=== PATIENT | female | born 1950 | race Caucasian/White ===

== ENCOUNTER → 2020-05-21 12:57 | Outpatient (BNVA) | payer MEDICARE, SELFPAY | PROVIDERS: PCP Internal Medicine; Referring Provider Internal Medicine; Visit Provider Hospitalist | DX: J44.9 Chronic obstructive pulmonary disease, unspecified (principal); J96.10 Chronic respiratory failure, unspecified whether with hypoxia or hypercapnia; F17.210 Nicotine dependence, cigarettes, uncomplicated; Z99.81 Dependence on supplemental oxygen | CPT/HCPCS: 99214 ==

== ENCOUNTER → 2020-08-18 13:39 | Outpatient (BNVA) | payer MEDICARE, SELFPAY | PROVIDERS: PCP Internal Medicine; Visit Provider Hospitalist | DX: J44.9 Chronic obstructive pulmonary disease, unspecified (principal); J96.10 Chronic respiratory failure, unspecified whether with hypoxia or hypercapnia; J18.9 Pneumonia, unspecified organism; M54.9 Dorsalgia, unspecified | CPT/HCPCS: Q3014 ==

== ENCOUNTER 2020-08-19 17:54 | Outpatient (REF) | payer MEDICARE, SELFPAY ==
--- NOTE | 2020-08-19 18:08 | XR_ITS ---
EXAMINATION: XR CHEST CLINICAL INFORMATION: Pneumonia COMPARISON: None TECHNIQUE: 2 views of the chest were obtained. FINDINGS: Diffuse interstitial prominence. No focal consolidation or mass. Lungs are hyperexpanded consistent with emphysema. Calcified aortic arch. Normal heart size. Diffuse osteopenia. There is loss of vertebral body height and endplate sclerosis and irregularity centered around a mid thoracic disc space. XR/XR chest 2V IMPRESSION: Lungs are hyperexpanded consistent with emphysema. There is loss of vertebral body height and endplate sclerosis and irregularity centered around a mid thoracic disc space. This is most likely degenerative in etiology but osteomyelitis could give this appearance in the appropriate clinical setting. If the patient has back pain, consider MRI for further evaluation. There is diffuse interstitial prominence. Favor bronchitis over pulmonary edema or interstitial pneumonitis.
[2020-08-19 18:09] LABS: MANUAL DIFF FLAG NO
[2020-08-19 18:21] LABS: D Dimer 577 NG/ML
[2020-08-19 18:27] LABS: Basophils Percent Auto 0.2 % (0-2); Hematocrit 41.5 % (37-47); Hemoglobin 13.7 g/dl (12.0-16.0); Imm Gran Abs Auto 0.02 X10*3/uL (0.00-0.03); Imm Gran Pct Auto 0.2 % (0.0-0.4); Lymphocytes Absolute Auto 0.7 X10*3/uL (1.2-4.9); Lymphocytes Percent Auto 9.2 % (20-40); Mean Corpuscular Hemoglobin 30.6 pg (27.0-33.0); Mean Corpuscular Volume 92.8 fL (80-98); Mean Platelet Volume 9.8 fL (9.4-12.3); Monocytes Absolute Auto 0.3 X10*3/uL (0.1-1.2); Monocytes Percent Auto 4.2 % (2-11); Neutrophils Absolute Auto 6.9 X10*3/uL (2.0-8.3); Neutrophils Percent Auto 86.2 % (45-73); Platelet Count 289 X10*3/uL (160-400); Red Blood Count 4.47 X10*6/uL (4.20-5.50); Red Cell Distribution Width 11.5 % (11.0-16.0)
[2020-08-19 18:30] LABS: Anion Gap 13 (12-20); Blood Urea Nitrogen 15 mg/dL (9-16); Calcium 9.1 mg/dL (8.4-10.2); Carbon Dioxide 29 mmol/L (22-29); Chloride 100 mmol/L (96-108); Estimated Glomerular Filt Rate > 60; Glucose Random 129 mg/dL (60-115); Potassium 4.4 mmol/l (3.3-5.1); Sodium 138 mmol/L (135-145)
[2020-08-19 19:05] LABS: Erythrocyte Sedimentation Rate 11 MM/HR (0-20)
== END 2020-08-19 17:55 | disposition home or self-care (01) ==
LOC: HO.LAB 17:54
PROVIDERS: Visit Provider Hospitalist
DX: J18.9 Pneumonia, unspecified organism (principal)
CPT/HCPCS: 36415; 71046; 80048; 85025; 85379; 85652

== ENCOUNTER 2020-08-20 15:35 | Outpatient (REF) | payer MEDICARE, SELFPAY ==
--- NOTE | 2020-08-20 15:41 | CT_ITS ---
EXAMINATION: CT ANGIOGRAM OF THE CHEST WITH AND WITHOUT CONTRAST (CT PULMONARY ANGIOGRAM FOR PE) CLINICAL INFORMATION: Reason for Exam M54.9 - Dorsalgia, unspecified COMPARISON: Chest radiographs 08/19/2020 TECHNIQUE: Prior to contrast administration, noncontrast localization images were obtained. Subsequently, multidetector volumetric imaging was performed from the thoracic inlet to below the diaphragms following the administration of 65 mL Omnipaque 350 intravenous contrast. Sagittal, coronal, and MIP oblique sagittal reformatted images were obtained on the CT workstation, uploaded to PACS, and reviewed. This CT examination was performed using dose optimization techniques as appropriate, variously including the following: *Automated exposure control *Adjustment of mA and/or kV according to patient size (this includes techniques or standardized protocols for targeted exams where dose is matched to indication/reason for exam; i.e. extremities or head) *Use of iterative reconstruction technique Total exam dose-length product 49 mGy-cm FINDINGS: QUALITY OF STUDY/CONTRAST BOLUS: Satisfactory. PULMONARY ARTERIES: No central or segmental pulmonary emboli. THORACIC AORTA: No aneurysm or dissection. LUNG: There is hyperinflation/COPD. No airspace consolidation or groundglass opacity. No mass. The central airways are clear. No endobronchial lesion or bronchiectasis. No pneumothorax PLEURA: No pleural effusion or pneumothorax. MEDIASTINUM: Normal heart size. No pericardial effusion. No hilar or mediastinal lymphadenopathy. No evidence of septal bowing or right heart strain. CHEST WALL/AXILLA: No axillary or internal mammary lymphadenopathy. OSSEOUS STRUCTURES: There is dextrocurvature midthoracic spine with loss of height inferior endplate T7 and superior endplate T8 with vacuum disc, endplate sclerosis, and spurring. No paraspinal soft tissue swelling. Findings suggest chronic vertebral compression. No acute bony abnormality demonstrated. UPPER ABDOMEN: There are scattered low-attenuation lesions in the liver, largest right lobe 2.8 cm and 5HU attenuation consistent with a cyst. Scattered other low attenuation lesions are beyond water attenuation, largest anterior left lobe measures 1.7 x 3.4 cm. There is a cyst upper pole right kidney measuring 2.4 cm and 9 HU attenuation. No reflux of contrast into the hepatic veins to suggest elevated right heart pressures. CT/CT angio chest PE protocol IMPRESSION: 1. No pulmonary embolism. No thoracic aortic dissection. 2. Hyperinflation/COPD. Lungs clear. 3. Midthoracic vertebral compressions T7 and T8, likely chronic. No paraspinal soft tissue swelling. 4. Multiple low-attenuation lesions liver, some consistent with cysts. This may be correlated with liver function tests and if clinically indicated ultrasound. Right upper pole renal cyst. VTE: negative
[2020-08-20] MEDS: iohexoL 350 MG/ML 100 ML INFUS..BTL 65 ML IV (16:19)
== END 2020-08-20 15:36 | disposition home or self-care (01) ==
LOC: HO.CT 15:35
PROVIDERS: Visit Provider Hospitalist
DX: R79.89 Other specified abnormal findings of blood chemistry (principal); R07.9 Chest pain, unspecified; M54.9 Dorsalgia, unspecified
CPT/HCPCS: 71275; Q9967

== ENCOUNTER 2020-09-02 | Outpatient (REF) | payer MEDICARE, SELFPAY | END 2020-09-02 00:01 | disposition home or self-care (01) | LOC: HO.VC | PROVIDERS: Visit Provider Internal Medicine | DX: Z23 Encounter for immunization (principal) | CPT/HCPCS: 0011A ==

== ENCOUNTER 2020-09-29 | Outpatient (REF) | payer MEDICARE, SELFPAY | END 2020-09-29 00:01 | disposition home or self-care (01) | LOC: HO.VC | PROVIDERS: Visit Provider Internal Medicine | DX: Z23 Encounter for immunization (principal) | CPT/HCPCS: 0012A ==

== ENCOUNTER → 2020-09-29 09:45 | Outpatient (BNVA) | payer MEDICARE, SELFPAY | PROVIDERS: PCP Internal Medicine; Visit Provider Hospitalist | DX: J43.2 Centrilobular emphysema (principal); J96.11 Chronic respiratory failure with hypoxia | CPT/HCPCS: 99212 ==

== ENCOUNTER 2020-11-26 13:09 | Emergency (ER) | payer MEDICARE, SELFPAY ==
--- NOTE | ~2020-11-26 | CT_ITS ---
EXAMINATION: CTA CHEST CT ABDOMEN AND PELVIS WITH CONTRAST CLINICAL INFORMATION: Shortness of breath. Abdominal fullness . COMPARISON: CT angiography chest 08/20/2020 TECHNIQUE: A noncontrast localizer was performed, followed by the administration of 85 mL Omnipaque [address] of the chest was then performed. Coronal and sagittal reformatted and 3-D technique MIP images of the chest were completed at the CT scanner and reviewed on the PACS workstation. No adverse effects were reported. Images were then performed through the abdomen and pelvis. Coronal and sagittal reformatted images performed at CT scanner by technologist. [This CT examination was performed using dose optimization techniques as appropriate, variously including the following: *Automated exposure control *Adjustment of mA and/or kV according to patient size (this includes techniques or standardized protocols for targeted exams where dose is matched to indication/reason for exam; i.e. extremities or head) *Use of iterative reconstruction technique] DLP: 279 mGy-cm. FINDINGS: CTA CHEST Vascular: The main pulmonary artery, secondary and tertiary branches of the pulmonary artery are normally opacified with no evidence of pulmonary embolism. No aneurysm or dissection of aorta. There are vascular wall calcifications of the aorta. There is no pericardial effusion. Heart size is normal. Moderate volume of coronary artery calcifications. Mediastinum: No mediastinal mass. No significant lymphadenopathy. Lungs: Marked emphysematous change of lungs. No acute airways disease. No interstitial lung disease. No significant bronchiectasis. Fluid: There is no pericardial effusion. There is no pleural effusion. Axilla: No significant lymphadenopathy. CT SCAN ABDOMEN/PELVIS: Liver, Gallbladder and Biliary Tree: Numerous various-sized hypodense lesions throughout the liver with sharply marginated borders. Largest of these measures about 3 cm. These have density measurement of 10 Hounsfield units consistent with hepatic cysts. No suspicious liver lesions or intrahepatic bile duct dilatation. Calcified gallstones layer dependently in the gallbladder. There is no edema around the gallbladder. There is no bile duct dilatation. The extra hepatic CBD measures 5 mm. Pancreas: Unremarkable. Spleen: Unremarkable. Adrenal Glands: Unremarkable. Kidneys and Ureters: The kidneys are normal in size, shape, and attenuation. No hydronephrosis, hydroureter, or calculi seen. No perinephric stranding. There are scattered hypodensities in the cortex of both kidneys. The largest of these is at the upper pole of the right kidney measuring 2.5 cm. This has a density measurement of 10 Hounsfield units consistent with a renal cyst. Many of the other are too small to characterize. These are likely additional renal cysts. No follow-up imaging is recommended for simple renal cyst. There is no renal or ureteral calculus. There is no hydronephrosis. Bladder: Unremarkable. Gastrointestinal Tract: There are numerous diverticula of the left colon and sigmoid colon. Scattered diverticula of the right colon. There is no diverticulitis. There is no bowel wall thickening /edema. There is no bowel obstruction. There is a moderate to large volume of stool in the colon. The appendix is nonvisualized. The small bowel loops are unremarkable. The stomach is normal. There is no hiatal hernia. Abdominal Wall: No significant hernia is appreciated. Lymph Nodes: Normal. Vascular: Aneurysm of aorta measuring 2.8 cm AP. Intraluminal thrombus is present in the aneurysm. There are vascular calcifications of aorta and iliac arteries. For an aneurysm of 2.8 cm follow-up imaging every 5 years is recommended. There are vascular calcifications of the major branch vessels of aorta most significantly at the splenic artery. Pelvic Viscera: Unremarkable. Osseous Structures: Near complete loss of height of the L4 vertebrae. This is a chronic deformity with sclerosis of the bone and marginal bone spurs. There is a spur at the posterior superior endplate that encroaches into the central spinal canal. There is significant central canal stenosis at L3-L4 disc. CT/CT angio chest PE protocol IMPRESSION: 1.CT CHEST: No evidence of pulmonary embolism. No acute changes of the chest. Marked emphysematous change of lungs. 2. CT abdomen and pelvis: No acute abnormality of the abdomen or pelvis. Multiple hepatic cysts. Multiple renal cysts. No follow-up imaging recommended for simple renal cysts. A 2.8 cm abdominal aortic aneurysm. Follow-up imaging every 5 years is recommended. Cholelithiasis.
[2020-11-26 13:22] VITALS: BP 110/73; BP 145/87; PULSE 75; PULSE 89; RESP 24; TEMP 36.9; O2SAT 94; O2SAT 99; BMI 13.6
--- NOTE | 2020-11-26 13:50 | PC.NURSE ---
Pt alert, oriented. skin slightly pale and cool. LS wheezing throughout. SOB and difficulty breathing noted with exertion. Pt denies pain. On arrival EMT reports pt was on 4L O2 NC. EMT reports Pt was found on 5L at home. Pt titrated to 2L, currently satting @ 96%. Pt currently in bed, daughter at bedside at this time.
--- NOTE | 2020-11-26 13:56 | ED_ITS ---
HPI - General Adult General Chief complaint: General Medical Stated complaint: failure to thrive Time Seen by Provider: 11/26/20 13:33 Source: patient Mode of arrival: ambulatory Limitations: no limitations History of Present Illness HPI narrative: Patient brought to the ED for fullness sensation in epigastric area which discouraged her to eat and patient has been losing weight. Patient also states when she has epigastric fullness she has the shortness of breath. Patient states having all these symptoms he has been going on for about 2-3 months. Patient herself bumped up her oxygen to 5 L when she had this sensation which her electronic tech was unaware of. Patient denies any chest pain, coughing, swelling of lower extremity, calf pain, fever, or chills. Patient has emphysema. Patient does admit to chronic shortness of breath. Related Data Home Medications Medication Instructions Recorded Confirmed aspirin 81 mg tablet,delayed 81 mg PO DAILY 05/21/20 11/26/20 release atorvastatin 20 mg tablet 20 mg PO BEDTIME 05/21/20 11/26/20 gabapentin 100 mg capsule 100 mg PO DAILY 05/21/20 11/26/20 lorazepam 0.5 mg tablet 0.5 mg PO DAILY PRN 05/21/20 11/26/20 albuterol sulfate [ProAir HFA] 1 puff PO Q4H PRN 11/26/20 11/26/20 amlodipine 1 tab PO DAILY 11/26/20 11/26/20 budesonide-formoterol [Symbicort] 2 puff PO BID 11/26/20 11/26/20 lorazepam 1 mg PO BEDTIME PRN 11/26/20 11/26/20 losartan 1 tab PO BEDTIME 11/26/20 11/26/20 omeprazole 1 cap PO DAILY 11/26/20 11/26/20 sertraline 1 tab PO DAILY 11/26/20 11/26/20 tiotropium bromide [Spiriva 2 puff PO DAILY 11/26/20 11/26/20 Respimat] Previous Rx's Medication Instructions Recorded alum-mag hydroxide-simeth [Maalox 10 ml PO Q6H PRN #3000 ml 11/26/20 Advanced] famotidine [Pepcid] 20 mg PO BID 20 Days #40 tab 11/26/20 prednisone 40 mg PO DAILY #10 tab 11/26/20 Allergies Allergy/AdvReac Type Severity Reaction Status Date / Time lisinopril Allergy Severe Tongue Verified 09/29/20 10:12 sweling Penicillin AdvReac Mild tachycardia Uncoded 09/29/20 10:12 Vicodin AdvReac Mild vomitting Uncoded 09/29/20 10:12 Review of Systems Review of Systems: Yes all other systems are reviewed and are negative Constitutional: Constitutional: Reports as per HPI and Reports no additional constitutional complaints Eyes: Eyes: Reports as per HPI and Reports no additional eye complaints ENT: Reports system reviewed and no additional complaints, except as documented and Reports as per HPI Cardiovascular: Cardiovascular: Reports as per HPI, Reports no additional cardiovascular complaints and Reports dyspnea (Chronic) Respiratory: Respiratory: Reports as per HPI, Reports no additional respiratory complaints and Reports dyspnea (Chronic) Gastrointestinal: Gastrointestinal: Reports as per HPI, Reports no additional gastrointestinal complaints and Reports dyspepsia (In epigastric area) Genitourinary: Genitourinary: Reports no additional female genitourinary complaints and Reports as per HPI Musculoskeletal: Musculoskeletal: Reports no additional musculoskeletal complaints and Reports as per HPI Neurologic: Reports system reviewed and no additional complaints, except as documented and Reports as per HPI Psychiatric: Psychiatric: Reports no additional psychiatric complaints and Reports as per HPI [facility] Past Medical History Medical History (Updated 11/26/20 @ 21:55 by ZACK Gibson) Back pain Chest pain Chronic respiratory failure Compression fracture of body of thoracic vertebra COPD (chronic obstructive pulmonary disease) Pneumonia Family History Family History (Updated 05/21/20 @ 20:58 by Lizandro Silva MD) Father No problems noted. Social History Social History (Updated 05/21/20 @ 13:15 by Cindy Tristan MA) Smoking Status: Current every day smoker Tobacco Type: Cigarette Packs Per Day: 1.5 Cigarettes Per Day: 6 Years Smoked: 55 years Advance Directives: No Advance Directives Information Provided: No Physical Exam Vital Signs: Vital Signs: Last Vital Signs Temp 98.5 F 11/26/20 13:22 Pulse 86 11/26/20 22:23 Resp 16 11/26/20 22:23 BP 133/55 L 11/26/20 22:23 Pulse Ox 97 11/26/20 22:23 Oxygen Flow Rate 3 11/26/20 13:22 Body Mass Index 13.6 Const: General: cooperative, healthy appearing, comfortable and no acute distress Orientation/consciousness: patient oriented x3 HENMT: Head: Yes normal to inspection, Yes No palpable skull fracture present, Yes normocephalic, Yes atraumatic and No abrasion Eyes: General: appearance normal, both eyes and all related structures Neck: Neck: Yes normal visual inspection, Yes full ROM, Yes no lymphadenopathy, Yes no meningeal signs, Yes trachea midline, Yes supple and No tender Chest: Chest palpation & inspection: normal inspection of the chest and normal palpation of entire chest wall Resp: Effort & Inspection: normal respiratory effort, able to speak in complete sentences, no audible wheezes and no cough Auscultation: clear to auscultation bilaterally, no crackles, no rales, no rhonchi, no wheezes and breath sounds present Cardio: Jugular venous distension: no JVD Heart sounds: S1 normal heart sound present and S2 normal heart sound present GI: Inspection: Yes normal to inspection Palpation (GI): Soft to palpation, not firm, nontender, no guarding and not rigid : General: No CVA tenderness and Yes no CVA tenderness Back/Spine/Pelvis: Back: no CVA tenderness, No CVA tenderness and No back tenderness Skin: General skin exam: no rashes or lesions noted and elasticity normal Neuro: General: patient oriented x3, no meningeal signs and CN's II-XI intact bilaterally Cranial nerves: Yes CN's II-XII intact bilaterally Extrem: Other: Lower extremities negative for swelling, pitting edema, calf tenderness General: Yes normal to inspection and Yes full ROM Psych: Appearance: grossly normal, well kempt and not disheveled Course Course Course Narrative: It is differential diagnosis is dyspepsia, but due to age will do cardiac evaluation to make sure patient is not having a heart attack. Unlikely patient having COPD exacerbation due to lungs being clear but will give her albuterol/magnesium, and Solu-Medrol treat her COPD due to patient stating chronic shortness of breath and is known to be a almost end-stage emphysema patient. Labs will be ordered, EKG, liver enzymes, an COVID swab will be ordered. Patient also given GI cocktail. Reevaluation(s) Reevaluation #1: EKG negative for STEMI. First troponin is negative. COVID swab came back negative. BNP came back negative. Patient states fullness sensation epigastric area resolved after receiving GI cocktail. GT age will send patient for abdominal CT scan just to make sure there is no abdominal etiology and CT emission does know PE or superimposed pneumonia on the emphysema. Lactic acid came back negative not suspecting sepsis. Patient's oxygen L nasal cannula was reduced from 4 L to 2 L. O2 saturation 93%. patient states feeling better. Reevaluation #2: Chest CT came back negative for PE or pneumonia. CT scan does shows gallstones without any cholecystitis. Negative Bryant sign on re- evaluation. Liver enzymes normal. No surgical intervention indicated. ABG was done due to slight tachypnea and ABG came back normal. Patient would like to be discharged and sent home. Spoke with hospitalist, Dr. Kaur to intervening he was formed patient's history, physical exam, and diagnostics. He patient does not need admission and can be discharged. He states patient can be given morphine to help with anxiety. He does not recommend antibiotics. Patient refused morphine because of side effect of severe nausea/vomiting. Patient states she takes Ativan for her anxiety. She states she takes 1 mg for her anxiety. Patient and daughter requesting GI cocktail was given to her in the ED. spoke with patient's electronic tech Dr. Lizandro Silva who was agreeable with plan and discharged and patient will follow-up with him in office. Patient does not have COPD exacerbation. Medical Decision Making MDM Narrative Medical decision making narrative: Dyspepsia.Emphysema Lab Data Result diagrams: 11/26/20 15:43 11/26/20 15:43 Labs: Lab Results 11/26/20 11/26/20 11/26/20 Range/Units 15:42 15:43 15:43 WBC 7.5 (4.8-10.8) X10*3/uL RBC 4.57 (4.20-5.50) X10*6/uL Hgb 14.0 (12.0-16.0) g/dl Hct 43.1 (37-47) % MCV 94.3 (80-98) fL MCH 30.6 (27.0-33.0) pg MCHC 32.5 (31.0-35.0) g/dl RDW 11.5 (11.0-16.0) % Plt Count 248 (160-400) X10*3/uL MPV 10.3 (9.4-12.3) fL Immature Gran % (Auto) 0.1 (0.0-0.4) % Neut % (Auto) 66.0 (45-73) % Lymph % (Auto) 22.6 (20-40) % [place] % (Auto) 5.1 (2-11) % Eos % (Auto) 5.5 H (0-4) % Baso % (Auto) 0.7 (0-2) % Lymph # (Auto) 1.7 (1.2-4.9) X10*3/uL [place] # (Auto) 0.4 (0.1-1.2) X10*3/uL Eos # (Auto) 0.4 (0.0-0.4) X10*3/uL Baso # (Auto) 0.1 (0.0-0.2) X10*3/uL Abs Immat Gran (auto) 0.01 (0.00-0.03) X10*3/uL Absolute Neuts (auto) 4.9 (2.0-8.3) X10*3/uL Absolute Nucleated RBC 0.000 (0.0-0.012) X10*3/uL Nucleated RBC % (auto) 0.0 (0.0-0.2) /100WBC PT (10.8-13.0) SEC INR (0.9-1.1) APTT (24.1-38.0) SEC O2 Saturation % ABG pH at Pt Temp (7.35-7.45) ABG pH (Temp Correct) (7.35-7.45) ABG pCO2 at Pt Temp (32-45) mmHg ABG pCO2 (Temp Corrct (32-45) mmHg ABG pO2 at Pt Temp (83-108) mmHg ABG pO2 (Temp Correct (83-108) ABG HCO3 (22-26) mmol/L ABG Base Excess (Actual) mmol/L Sodium 143 (135-145) mmol/L Potassium 4.1 (3.3-5.1) mmol/L Chloride 99 (96-108) mmol/L Carbon Dioxide 32 H (22-29) mmol/L Anion Gap 16 (12-20) BUN 15 (9-16) mg/dL Creatinine 0.57 (0.5-1.4) mg/dL Estim Creat Clear Calc 41.6 Estimated GFR > 60 Random Glucose 99 (60-115) mg/dL Lactic Acid 1.4 (0.5-2.0) mmol/L Calcium 9.7 D (8.4-10.2) mg/dL Magnesium 2.0 (1.6-2.6) mg/dL Total Bilirubin 0.5 (0.0-1.0) mg/dL Direct Bilirubin 0.2 (0.0-0.5) mg/dL AST 15 (5-31) U/L ALT 12 (0-31) U/L Alkaline Phosphatase 78 (39-117) U/L Total Creatine Kinase 39 (26-140) U/L Troponin I High Sens (<3.5-17.0) ng/L B-Natriuretic Peptide (<100) pg/mL Total Protein 6.8 (6.5-8.0) g/dL Albumin 4.3 (3.5-5.0) g/dL Lipase 11 (8-78) U/L COVID-19 ([facility]) (Negative) COVID-19 Clin Com 11/26/20 11/26/20 11/26/20 Range/Units 15:43 15:43 15:44 WBC (4.8-10.8) X10*3/uL RBC (4.20-5.50) X10*6/uL Hgb (12.0-16.0) g/dl Hct (37-47) % MCV (80-98) fL MCH (27.0-33.0) pg MCHC (31.0-35.0) g/dl RDW (11.0-16.0) % Plt Count (160-400) X10*3/uL MPV (9.4-12.3) fL Immature Gran % (Auto) (0.0-0.4) % Neut % (Auto) (45-73) % Lymph % (Auto) (20-40) % [place] % (Auto) (2-11) % Eos % (Auto) (0-4) % Baso % (Auto) (0-2) % Lymph # (Auto) (1.2-4.9) X10*3/uL [place] # (Auto) (0.1-1.2) X10*3/uL Eos # (Auto) (0.0-0.4) X10*3/uL Baso # (Auto) (0.0-0.2) X10*3/uL Abs Immat Gran (auto) (0.00-0.03) X10*3/uL Absolute Neuts (auto) (2.0-8.3) X10*3/uL Absolute Nucleated RBC (0.0-0.012) X10*3/uL Nucleated RBC % (auto) (0.0-0.2) /100WBC PT 12.1 (10.8-13.0) SEC INR 1.0 (0.9-1.1) APTT 33.1 (24.1-38.0) SEC O2 Saturation % ABG pH at Pt Temp (7.35-7.45) ABG pH (Temp Correct) (7.35-7.45) ABG pCO2 at Pt Temp (32-45) mmHg ABG pCO2 (Temp Corrct (32-45) mmHg ABG pO2 at Pt Temp (83-108) mmHg ABG pO2 (Temp Correct (83-108) ABG HCO3 (22-26) mmol/L ABG Base Excess (Actual) mmol/L Sodium (135-145) mmol/L Potassium (3.3-5.1) mmol/L Chloride (96-108) mmol/L Carbon Dioxide (22-29) mmol/L Anion Gap (12-20) BUN (9-16) mg/dL Creatinine (0.5-1.4) mg/dL Estim Creat Clear Calc Estimated GFR Random Glucose (60-115) mg/dL Lactic Acid (0.5-2.0) mmol/L Calcium (8.4-10.2) mg/dL Magnesium (1.6-2.6) mg/dL Total Bilirubin (0.0-1.0) mg/dL Direct Bilirubin (0.0-0.5) mg/dL AST (5-31) U/L ALT (0-31) U/L Alkaline Phosphatase (39-117) U/L Total Creatine Kinase (26-140) U/L Troponin I High Sens < 3.5 (<3.5-17.0) ng/L B-Natriuretic Peptide 34 (<100) pg/mL Total Protein (6.5-8.0) g/dL Albumin (3.5-5.0) g/dL Lipase (8-78) U/L COVID-19 ([facility]) Negative (Negative) COVID-19 Clin Com See Note 11/26/20 11/26/20 Range/Units 20:11 20:21 WBC (4.8-10.8) X10*3/uL RBC (4.20-5.50) X10*6/uL Hgb (12.0-16.0) g/dl Hct (37-47) % MCV (80-98) fL MCH (27.0-33.0) pg MCHC (31.0-35.0) g/dl RDW (11.0-16.0) % Plt Count (160-400) X10*3/uL MPV (9.4-12.3) fL Immature Gran % (Auto) (0.0-0.4) % Neut % (Auto) (45-73) % Lymph % (Auto) (20-40) % [place] % (Auto) (2-11) % Eos % (Auto) (0-4) % Baso % (Auto) (0-2) % Lymph # (Auto) (1.2-4.9) X10*3/uL [place] # (Auto) (0.1-1.2) X10*3/uL Eos # (Auto) (0.0-0.4) X10*3/uL Baso # (Auto) (0.0-0.2) X10*3/uL Abs Immat Gran (auto) (0.00-0.03) X10*3/uL Absolute Neuts (auto) (2.0-8.3) X10*3/uL Absolute Nucleated RBC (0.0-0.012) X10*3/uL Nucleated RBC % (auto) (0.0-0.2) /100WBC PT (10.8-13.0) SEC INR (0.9-1.1) APTT (24.1-38.0) SEC O2 Saturation 95.0 % ABG pH at Pt Temp 7.42 (7.35-7.45) ABG pH (Temp Correct) 7.42 (7.35-7.45) ABG pCO2 at Pt Temp 44 (32-45) mmHg ABG pCO2 (Temp Corrct 44 (32-45) mmHg ABG pO2 at Pt Temp 76 L (83-108) mmHg ABG pO2 (Temp Correct 75 L (83-108) ABG HCO3 29 H (22-26) mmol/L ABG Base Excess (Actual) 4.6 mmol/L Sodium (135-145) mmol/L Potassium (3.3-5.1) mmol/L Chloride (96-108) mmol/L Carbon Dioxide (22-29) mmol/L Anion Gap (12-20) BUN (9-16) mg/dL Creatinine (0.5-1.4) mg/dL Estim Creat Clear Calc Estimated GFR Random Glucose (60-115) mg/dL Lactic Acid (0.5-2.0) mmol/L Calcium (8.4-10.2) mg/dL Magnesium (1.6-2.6) mg/dL Total Bilirubin (0.0-1.0) mg/dL Direct Bilirubin (0.0-0.5) mg/dL AST (5-31) U/L ALT (0-31) U/L Alkaline Phosphatase (39-117) U/L Total Creatine Kinase (26-140) U/L Troponin I High Sens < 3.5 (<3.5-17.0) ng/L B-Natriuretic Peptide (<100) pg/mL Total Protein (6.5-8.0) g/dL Albumin (3.5-5.0) g/dL Lipase (8-78) U/L COVID-19 ([facility]I) (Negative) COVID-19 Clin Com ECG Data Interpretation: Normal sinus rhythm. Normal EKG. Ventricular rate 78. ID interval 116. QRS 76. QTC 405. Negative STEMI Discharge Plan Discharge Clinical Impression: GERD (gastroesophageal reflux disease), Emphysema/COPD Patient Disposition: Home, Self-Care Instructions: Emphysema (ED), Gastroesophageal Reflux Disease (ED), Indigestion (ED) Additional Instructions: Return to the ED immediately for chest pain, shortness of breath, abdominal pain, nausea, vomiting, fever, chills, leg swelling, loss of appetite, dizziness, weakness, or any other concerning symptoms. Prescriptions: New famotidine [Pepcid] 20 mg tablet 20 mg PO BID 20 Days Qty: 40 RF: 0 alum-mag hydroxide-simeth [Maalox Advanced] 200-200-20 mg/5 mL suspension 10 ml PO Q6H PRN (Reason: dyspepsia) Qty: 3000 RF: 0 prednisone 20 mg tablet 40 mg PO DAILY Qty: 10 RF: 0 No Action lorazepam 0.5 mg tablet 1 mg PO BEDTIME PRN (Reason: Anxiety) RF: 0 amlodipine 10 mg tablet 1 tab PO DAILY RF: 0 losartan 25 mg tablet 1 tab PO BEDTIME RF: 0 omeprazole 20 mg capsule,delayed release(DR/EC) 1 cap PO DAILY RF: 0 albuterol sulfate [ProAir HFA] 90 mcg/actuation HFA aerosol inhaler 1 puff PO Q4H PRN (Reason: wheezing) RF: 0 sertraline 50 mg tablet 1 tab PO DAILY RF: 0 budesonide-formoterol [Symbicort] 160-4.5 mcg/actuation HFA aerosol inhaler 2 puff PO BID RF: 0 Spiriva Respimat 2.5 mcg/actuation mist 2 puff PO DAILY RF: 0 aspirin 81 mg tablet,delayed release (DR/EC) 81 mg PO DAILY RF: 0 atorvastatin 20 mg tablet 20 mg PO BEDTIME RF: 0 gabapentin 100 mg capsule 100 mg PO DAILY RF: 0 lorazepam 0.5 mg tablet 0.5 mg PO DAILY PRN (Reason: Anxiety) RF: 0 Referrals: Cory Wan DO, MD [Primary Care Provider] - 2 days (Dyspepsia) Liazndro Silva MD [Physician] - 2 days (Emphysema) Interventions: ED Discharge Assessment Last Done: 11/26/20 22:36 Print Language: Kinyarwanda
--- NOTE | 2020-11-26 14:02 | ECG_ITS ---
Test Reason : SOB Blood Pressure : / mmHG Vent. Rate : 078 BPM Atrial Rate : 078 BPM P-R Int : 116 ms QRS Dur : 076 ms QT Int : 356 ms P-R-T Axes : 075 084 071 degrees QTc Int : 405 ms Normal sinus rhythm Normal ECG No previous ECGs available Referred By: Andrew Garcia Electronically Signed By:GARFIELD ALVES MD
[2020-11-26] MEDS: Albuterol/Iprat 2.5/0.5MG 3 ML AMPUL.NEB INHALE (14:27)
[2020-11-26 14:29] VITALS: PULSE 75; O2SAT 98
[2020-11-26 15:52] LABS: MANUAL DIFF FLAG NO
[2020-11-26] MEDS: 0.9 % Sodium Chloride 1,000 ML 999 ML IV (15:53)
[2020-11-26 15:54] LABS: Basophils Absolute Auto 0.1 X10*3/uL (0.0-0.2); Basophils Percent Auto 0.7 % (0-2); Eosinophils Absolute Auto 0.4 X10*3/uL (0.0-0.4); Eosinophils Percent Auto 5.5 % (0-4); Hematocrit 43.1 % (37-47); Imm Gran Abs Auto 0.01 X10*3/uL (0.00-0.03); Imm Gran Pct Auto 0.1 % (0.0-0.4); Lymphocytes Absolute Auto 1.7 X10*3/uL (1.2-4.9); Lymphocytes Percent Auto 22.6 % (20-40); Mean Corpuscular HGB Conc 32.5 g/dl (31.0-35.0); Mean Corpuscular Hemoglobin 30.6 pg (27.0-33.0); Mean Corpuscular Volume 94.3 fL (80-98); Mean Platelet Volume 10.3 fL (9.4-12.3); Monocytes Absolute Auto 0.4 X10*3/uL (0.1-1.2); Monocytes Percent Auto 5.1 % (2-11); Neutrophils Absolute Auto 4.9 X10*3/uL (2.0-8.3); Platelet Count 248 X10*3/uL (160-400); Red Blood Count 4.57 X10*6/uL (4.20-5.50); Red Cell Distribution Width 11.5 % (11.0-16.0); White Blood Count 7.5 X10*3/uL (4.8-10.8)
[2020-11-26 16:05] LABS: Prothrombin Time 12.1 SEC (10.8-13.0)
[2020-11-26 16:08] LABS: Partial Thromboplastin Time 33.1 SEC (24.1-38.0)
[2020-11-26 16:14] LABS: COVID-19 Test Negative (Negative)
[2020-11-26 16:16] LABS: Lactic Acid 1.4 mmol/L (0.5-2.0)
[2020-11-26] MEDS: Famotidine/PF 20 MG/2 ML VIAL IVPUSH (16:19)
[2020-11-26] MEDS: Magnesium Hydrox/Alum Hydrox 30 ML ORAL.SUSP PO (16:20)
[2020-11-26] MEDS: Lidocaine HCl Viscous 2 % 15 ML SOLUTION MUCOUS MEM (16:20)
[2020-11-26 16:25] LABS: Alanine Aminotransferase 12 U/L (0-31); Albumin Level 4.3 g/dL (3.5-5.0); Alkaline Phosphatase 78 U/L (39-117); Anion Gap 16 (12-20); Aspartate Amino Transferase 15 U/L (5-31); Bilirubin Direct 0.2 mg/dL (0.0-0.5); Bilirubin Total 0.5 mg/dL (0.0-1.0); Blood Urea Nitrogen 15 mg/dL (9-16); Calcium 9.7 mg/dL (8.4-10.2); Carbon Dioxide 32 mmol/L (22-29); Chloride 99 mmol/L (96-108); Creatinine Clr Calc Pharmacy 41.6; Estimated Glomerular Filt Rate > 60; Glucose Random 99 mg/dL (60-115); Lipase 11 U/L (8-78); Potassium 4.1 mmol/L (3.3-5.1); Sodium 143 mmol/L (135-145); Total Protein 6.8 g/dL (6.5-8.0)
[2020-11-26 16:37] LABS: B Type Natriuretic Peptide 34 pg/mL (<100); Troponin-I High Sensitivity < 3.5 ng/L (<3.5-17.0)
[2020-11-26] MEDS: methylPREDNISolone Sod Succ 125 MG/2 ML VIAL IVPUSH (16:55)
[2020-11-26] MEDS: Magnesium Sulfate/H2O 2 GM/50 ML PIGGYBACK IV (17:01)
[2020-11-26 17:17] VITALS: BP 145/59; PULSE 82; RESP 24; O2SAT 94
--- NOTE | 2020-11-26 17:38 | PC.NURSE ---
Addendum entered by Magdaleno Musatfa RN 11/26/20 18:22: Pt experiencing SOB and difficulty breathing with minimal exertion. Pt in bed sitting in Tripod Position. O2 sat 88-89% on 2L NC. O2 up to 3L O2 sat 94-95%. Andrew DIXON notified. Pt in bed at this awaiting CT scan. Daughter at bedside at this time. Original Note: Pt alert and oriented, skin slightly pale
[2020-11-26] MEDS: iohexoL 350 MG/ML 100 ML INFUS..BTL IV (19:12)
[2020-11-26 19:24] VITALS: BP 153/72; PULSE 93; RESP 29; O2SAT 95
--- NOTE | 2020-11-26 19:28 | PC.NURSE ---
Pt aaox4, resting on stretcher in NAD, breathing comfortably on 4LPM NC with sat >/= 94%. Pt daughter at bedside. Pt VSS. Pt denies pain/discomfort. Pt states she takes 1mg ativan at home at 6pm daily, feels she is becoming anxious and needs this medication. This RN to advocate for pt to provider. Stretcher in lowest locked position, rails raised, call espinoza within reach. Daughter remaining at baseline.
[2020-11-26 20:12] VITALS: O2SAT 95
[2020-11-26 20:17] LABS: ABG Refer to POC result
[2020-11-26 20:19] LABS: ABG Base Excess 4.6 mmol/L; ABG HCO3 29 mmol/L (22-26); ABG pCO2 44 mmHg (32-45); ABG pCO2 TC 44 mmHg (32-45); ABG pH 7.42 (7.35-7.45); ABG pH TC 7.42 (7.35-7.45); ABG pO2 76 mmHg (83-108); ABG pO2 TC 75 (83-108)
[2020-11-26 20:58] LABS: Troponin-I High Sensitivity < 3.5 ng/L (<3.5-17.0)
[2020-11-26] MEDS: LORazepam 1 MG TABLET PO (21:49)
[2020-11-26 22:23] VITALS: BP 133/55; PULSE 86; RESP 16; O2SAT 97
== END 2020-11-26 22:45 | disposition home or self-care (01) ==
PROVIDERS: Physician Assistant; Emergency Provider Internal Medicine; PCP Internal Medicine
DX: K21.9 Gastro-esophageal reflux disease without esophagitis (principal); J43.9 Emphysema, unspecified; R10.13 Epigastric pain; R06.02 Shortness of breath; F17.210 Nicotine dependence, cigarettes, uncomplicated; Z79.899 Other long term (current) drug therapy; Z71.6 Tobacco abuse counseling; Z20.822 Contact with and (suspected) exposure to COVID-19
CPT/HCPCS: 36415; 71275; 74177; 80053; 80076; 82248; 82550; 83605; 83690; 83735; 83880; 84484; 85025; 85610; 85730; 87040; 87635; 93005; 94640; 96361; 96365; 96375; 99284; J2930; J3475; Q9967

== ENCOUNTER → 2021-04-08 15:22 | Outpatient (BNVA) | payer MEDICARE, SELFPAY | PROVIDERS: PCP Internal Medicine; Visit Provider Hospitalist | DX: J43.2 Centrilobular emphysema (principal); J96.11 Chronic respiratory failure with hypoxia; S22.000D Wedge compression fracture of unspecified thoracic vertebra, subsequent encounter for fracture with routine healing | CPT/HCPCS: Q3014 ==

== ENCOUNTER → 2022-01-07 14:18 | Outpatient (BNVA) | payer MEDICARE, SELFPAY | PROVIDERS: PCP Internal Medicine; Visit Provider Hospitalist | DX: J43.2 Centrilobular emphysema (principal); J96.11 Chronic respiratory failure with hypoxia; S22.000D Wedge compression fracture of unspecified thoracic vertebra, subsequent encounter for fracture with routine healing | CPT/HCPCS: Q3014 ==